=== PATIENT | female | born 2000 | race Caucasian/White ===

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

== ENCOUNTER 2024-03-28 20:26 | Emergency (ER) | payer OTHER ==
[~2024-03-28] VITALS: Ht 162.6 cm; Wt 92.1 kg
[~2024-03-28 20:26] MED LIST: PERCOCET 5-3251 EACH PO
[2024-03-28] MEDS ORDERED: ACETAMINOPHEN 500 MG GEL..CAP PO ONE (21:00)
[2024-03-28 21:20] LABS: HEMATOCRIT 37.3 % (36.0-45.00); HEMOGLOBIN 12.5 g/dL (12.0-15.00); MEAN CELL VOLUME 74.9 fL (80.00-100.00); MEAN CORPUSCULAR HEMOGLOBIN 25.1 pg (27.00-32.0); MEAN CORPUSCULAR HGB CONC 33.5 g/dl (32.0-36.0); PLATELET COUNT 304 K/uL (150-450); RED BLOOD COUNT 4.98 M/uL (4.00-6.00); RED CELL DISTRIBUTION WIDTH 14.7 % (11.5-14.5)
[2024-03-28 21:35] LABS: PH,URINE 5.5 (5.0-8.0); URINE APPEARANCE Clear; URINE BILIRRUBIN Negative (NEGATIVE); URINE BLOOD Negative; URINE COLOR Yellow; URINE GLUCOSE Negative (NEGATIVE); URINE LEUKOCYTE Negative; URINE NITRATE Negative; URINE PROTEIN Trace (NEGATIVE)
[2024-03-28 21:39] LABS: URINE BACTERIA 661.4 uL (0.0-1933); URINE EPITHELIAL CELLS 40.9 uL (0.0-38.8)
[2024-03-28 21:43] LABS: INR 1.04; PARTIAL THROMBOPLASTIN TIME 24.6 SECONDS (22.0-34.0); PROTHROMBIN TIME 11.3 SECONDS (9.0-11.5)
[2024-03-28 21:55] LABS: BILIRUBIN TOTAL 0.43 mg/dL (0.3-1.2); CALCIUM 8.8 mg/dL (8.5-10.1); CREATININE SERUM 0.65 mg/dL (0.55-1.02); GFR 113.98; GLOBULINA 3.9 G/DL (2.4-3.5); POTASSIUM 3.48 mEq/L (3.5-5.1); TOTAL PROTEIN 7.9 gm/dL (6.4-8.2)
[2024-03-28 22:07] LABS: URINE CAST 1.22 uL (0.0-1.40); URINE KETONE 40 (NEGATIVE)
== END 2024-03-28 23:11 | disposition home or self-care (01) ==
LOC: ER 20:27
PROVIDERS: General Practice
DX: O26.891 Other specified pregnancy related conditions, first trimester (principal); R10.2 Pelvic and perineal pain; Z3A.01 Less than 8 weeks gestation of pregnancy

== ENCOUNTER 2024-06-16 23:55 | Emergency (ER) | payer OTHER ==
[~2024-06-16] VITALS: Ht 162.6 cm; Wt 91.2 kg
[2024-06-17] MEDS ORDERED: FOLIVANE-PLUS1 EACH PO (00:23)
[2024-06-17] MEDS ORDERED: ATABEX DHA 200200 MG PO (00:23)
[2024-06-17 00:24] VITALS: BP 113/75; O2SAT 99
[2024-06-17] MEDS ORDERED: ONDANSETRON HCL 2 MG/ML VIAL IV STA (01:38)
[2024-06-17] MEDS ORDERED: FAMOTIDINE/PF 20 MG/2 ML VIAL IV PUSH STA (01:38)
[2024-06-17] MEDS ORDERED: 0.9 % SODIUM CHLORIDE 1,000 ML IV ONE (01:45)
[2024-06-17 02:13] LABS: HEMATOCRIT 39.2 % (36.0-45.00); HEMOGLOBIN 13.4 g/dL (12.0-15.00); MEAN CELL VOLUME 76.3 fL (80.00-100.00); MEAN CORPUSCULAR HGB CONC 34.1 g/dl (32.0-36.0); PLATELET COUNT 218 K/uL (150-450); RED BLOOD COUNT 5.13 M/uL (4.00-6.00)
[2024-06-17 02:37] LABS: ALBUMIN 3.6 gm/dL (3.4-5.0); BILIRUBIN TOTAL 0.56 mg/dL (0.3-1.2); CALCIUM 8.8 mg/dL (8.5-10.1); CREATININE SERUM 0.49 mg/dL (0.55-1.02); GFR 157.92; GLOBULINA 4.5 G/DL (2.4-3.5); POTASSIUM 3.51 mEq/L (3.5-5.1); TOTAL PROTEIN 8.1 gm/dL (6.4-8.2)
[2024-06-17 03:13] LABS: URINE APPEARANCE Cloudy; URINE BILIRRUBIN Negative (NEGATIVE); URINE BLOOD Negative; URINE COLOR Dark Yellow; URINE GLUCOSE Negative (NEGATIVE); URINE LEUKOCYTE Negative; URINE NITRATE Negative; URINE PROTEIN 30 (NEGATIVE)
[2024-06-17 03:16] LABS: URINE BACTERIA 1948.5 uL (0.0-1933); URINE RBC 28.4 uL (0.0-20.8); URINE WBC 8.3 uL (0.0-23.2)
[2024-06-17 03:20] LABS: URINE CAST 1.32 uL (0.0-1.40); URINE KETONE >=160 (NEGATIVE)
[2024-06-17] MEDS ORDERED: ZOFRAN8 MG PO (04:44)
[2024-06-17] MEDS ORDERED: PEPCID40 MG PO (04:44)
== END 2024-06-17 04:59 ==
LOC: ER 23:55
PROVIDERS: General Practice
DX: O26.892 Other specified pregnancy related conditions, second trimester (principal); J02.9 Acute pharyngitis, unspecified; Z3A.16 16 weeks gestation of pregnancy; Z20.822 Contact with and (suspected) exposure to COVID-19

== ENCOUNTER 2024-11-13 04:16 | Inpatient (IN) | payer OTHER ==
[~2024-11-13] VITALS: Ht 162.6 cm; Wt 2.7 kg
[~2024-11-13 04:16] MED LIST changes: +ATABEX DHA 200200 MG PO; +FOLIVANE-PLUS1 EACH PO; +PEPCID40 MG PO; +ZOFRAN8 MG PO
[2024-11-13] MEDS ORDERED: AMPICILLIN SODIUM 2,000 MG VIAL ONE (04:19)
[2024-11-13] MEDS ORDERED: RINGERS SOLUTION,LACTATED 1,000 ML IV SCH (04:30)
[2024-11-13 04:35] VITALS: BP 104/72
[2024-11-13] MEDS ORDERED: IRON18 M1 PO (05:19)
[2024-11-13] MEDS ORDERED: PRENATA CHEWAB1 EACH PO (05:20)
[2024-11-13] MEDS ORDERED: AMPICILLIN SODIUM 2,000 MG VIAL IV ONE (05:30)
[2024-11-13] MEDS ORDERED: AMPICILLIN TRI500 MG PO (06:36)
[2024-11-13] MEDS ORDERED: ERYTHROMYCIN BASE OPHT 1GM EACH TUBE OP ONE (07:13)
[2024-11-13] MEDS ORDERED: OXYTOCIN 10 UNITS/ML VIAL ONE (07:13)
[2024-11-13 07:20] VITALS: BP 109/73; O2SAT 98
[2024-11-13] MEDS ORDERED: CARBOPROST TROMETHAMINE 250 MCG/ML AMPUL IM ONE (08:52)
[2024-11-13] MEDS ORDERED: SUGAMMADEX SODIUM 200 MG/2 ML VIAL IV ONE (09:25)
[2024-11-13] MEDS ORDERED: CEFAZOLIN SODIUM 1,000 MG VIAL IV STA (10:06)
[2024-11-13] MEDS ORDERED: MEPERIDINE HCL/PF 50 MG/ML VIAL IM SCH (10:15)
[2024-11-13] MEDS ORDERED: PROMETHAZINE HCL 25 MG/ML AMPUL IV SCH (12:00)
[2024-11-13] MEDS ORDERED: CEFAZOLIN SODIUM 1,000 MG VIAL ONE (12:23)
[2024-11-13] MEDS ORDERED: KETOROLAC TROMETHAMINE 60 MG VIAL IM ONE (13:25)
[2024-11-13 13:26] VITALS: BP 112/72
[2024-11-13] MEDS ORDERED: KETOROLAC TROMETHAMINE 60 MG VIAL IM STA (13:28)
[2024-11-13 16:00] VITALS: BP 103/66
[2024-11-13] MEDS ORDERED: CEFAZOLIN SODIUM 1,000 MG VIAL IV SCH (18:00)
[2024-11-13] MEDS ORDERED: KETOROLAC TROMETHAMINE 30 MG VIAL IV SCH (21:00)
[2024-11-14 00:10] VITALS: BP 107/67
[2024-11-14 04:30] VITALS: BP 105/71
[2024-11-14 08:00] VITALS: BP 118/65
[2024-11-14 08:32] LABS: BASO % 0.1 % (0.1-1.2); EOS # 0.07 (0.04-0.54); EOS % 0.6 % (0.7-7.0); HEMATOCRIT 28.8 % (34.1-44.9); LYMPH # 1.43 (1.18-3.74); LYMPH % 11.8 % (19.3-53.1); MEAN CORPUSCULAR HEMOGLOBIN 24.7 pg (25.6-32.2); MONO # 0.86 (0.24-0.82); MONO % 7.1 % (4.7-12.5); NEUT # 9.68 (1.56-6.13); NEUT % 80.1 % (34.0-71.1); PLATELET COUNT 181 K/uL (163-369); RED BLOOD COUNT 3.88 M/uL (3.93-5.22)
[2024-11-14 08:35] LABS: HEMOGLOBIN 9.6 g/dL (11.2-15.7)
[2024-11-14] MEDS ORDERED: NAPROXEN 500 MG TABLET PO SCH (09:30)
[2024-11-14] MEDS ORDERED: IRON FUM,PS/FOLIC/BCOMP,C NO.9 1 CAP CAPSULE PO STA (12:27)
[2024-11-14 15:51] VITALS: BP 96/64
[2024-11-14] MEDS ORDERED: IRON FUM,PS/FOLIC/BCOMP,C NO.9 1 CAP CAPSULE PO SCH (17:00)
[2024-11-14 20:00] VITALS: BP 108/71
[2024-11-15] VITALS: BP 107/71
[2024-11-15 08:00] VITALS: BP 118/77
[2024-11-15 08:48] LABS: BASO % 0.1 % (0.1-1.2); EOS # 0.12 (0.04-0.54); EOS % 0.9 % (0.7-7.0); HEMATOCRIT 29.9 % (34.1-44.9); HEMOGLOBIN 9.7 g/dL (11.2-15.7); LYMPH # 1.53 (1.18-3.74); LYMPH % 11.7 % (19.3-53.1); MEAN CORPUSCULAR HEMOGLOBIN 24.3 pg (25.6-32.2); MONO # 0.76 (0.24-0.82); MONO % 5.8 % (4.7-12.5); NEUT # 10.65 (1.56-6.13); PLATELET COUNT 192 K/uL (163-369); RED CELL DISTRIBUTION WIDTH 14.1 % (11.6-14.4)
[2024-11-15] MEDS ORDERED: IRON FUM,PS/FOLIC/BCOMP,C NO.9 1 CAP CAPSULE PO SCH (17:00)
== END 2024-11-15 12:00 | disposition home or self-care (01) | DRG 788 ==
LOC: LDR 04:16 → OB/GYN 04:16 → O/R 08:50 → OB/GYN 11:53
PROVIDERS: ADMIT Specialist; ATTEND Specialist
PROC: 4A1HXCZ Monitoring of Products of Conception, Cardiac Rate, External Approach (ICD-10-PCS; 2024-11-13)
PROC: 10D00Z1 Extraction of Products of Conception, Low, Open Approach (ICD-10-PCS; principal; 2024-11-13 08:00)
DX: O32.2XX0 Maternal care for transverse and oblique lie, not applicable or unspecified (principal); O99.824 Streptococcus B carrier state complicating childbirth; Z3A.38 38 weeks gestation of pregnancy; Z37.0 Single live birth